=== PATIENT | female | born 2005 | race Caucasian/White ===

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

== ENCOUNTER 2023-03-18 03:28 | Inpatient (IN) ==
[2023-03-18] MEDS ORDERED: LACTATED RINGER'S 1,000 ML IV PRN (03:49)
[2023-03-18] MEDS ORDERED: LIDOCAINE 1% LOCAL 20 ML VIAL INFIL PRN (03:49)
[2023-03-18] MEDS ORDERED: fentaNYL citrate PF 100 MCG/2 ML VIAL ONE (04:16)
[2023-03-18] MEDS ORDERED: BUPIVACAINE 0.25% PF 30 ML VIAL ONE (04:16)
[2023-03-18] MEDS ORDERED: ePHEDrine sulfate 50 MG/ML AMP ONE (04:16)
[2023-03-18] MEDS ORDERED: LIDOCAINE 2%/EPINEPHRINE 1:200,000 20 ML PF ONE (04:16)
[2023-03-18] MEDS ORDERED: SODIUM CHLORIDE 0.9% PF INJ 10 ML VIAL ONE (04:16)
[2023-03-18] MEDS ORDERED: fentaNYL 2MCG/ML ROPIVACAINE 1.25MG/ML 100 ML BAG EPI ONE (04:17)
--- NOTE | 2023-03-18 04:21 | History & Physical Report ---
Date of Service March 18, 2023 Assessment & Plan (1) : Plan: epidural planned History of Present Illness Chief Complaint: labor Primary Care Provider: NO PCP 17 F P1001 at term presents in active labor. GBS is negative. Allergies Allergy/AdvReac Type Severity Reaction Status Date / Time No Known Allergies Allergy Unverified 05/14/22 18:56 Home Medications Medication Instructions Recorded Confirmed Type No Known Home Medications 05/14/22 05/14/22 History Patient History Medical History (Updated 03/18/23 @ 04:21 by Tim Blair MD) No significant active problems Social History Smoking Status: Current every day smoker Tobacco Type: E-cigarettes / Vaping Hx Alcohol Use: No Hx Substance Use: Yes Preferred Language: [place] Communication Ability: Effective Beliefs That Will Affect Care: None marital status: Single Current Living Situation: Significant Other Current Living Situation Comment: Lives in apartment with boyfriend and 2 pets Feels Safe at Home: Yes Assistive Devices: None 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 Review of Systems All systems reviewed & are unremarkable except as noted in HPI & below Physical Exam Constitutional: WD/WN, vitals as above Eyes: PERRL, conjunctivae normal, anicteric sclerae Respiratory: normal respiratory effort, lungs clear to auscultation Cardiovascular: RRR, no murmur, no edema Gastrointestinal (Abdomen): Inspection/Auscultation: abdomen normal to inspection Musculoskeletal: Extremities: extremities normal to inspection Skin: no rashes, warm and dry Neurologic: patellar DTR's 2+ bilat, sensation intact Psychiatric: A+Ox3, euthymic affect Genitourinary: OB Exam Abdomen: + fundal height and + vertex Manual OB Exam: + cervical dilation 8 cm and 9 cm, + cervical effacement 90% and 100% and + station 0 OB Exam Monitor Tracing: + external FHT monitor used, + external uterine monitor used, + category I and + normal FHT variability Results & Data Vital Signs (Past 12 Hours) Vital Signs Pulse BP 03/18/23 03:55 80 117/66 Monitoring External Monitor Cat 1
[2023-03-18 04:35] LABS: Hematocrit (blood only) 36.6 % (37.0-47.0); Hemoglobin 12.7 g/dl (12.0-16.0); Mean Corpuscular Hemoglobin 32.2 pg (25.0-34.0); Mean Corpuscular Hgb Conc 34.7 g/dL (32.0-36.0); Mean Corpuscular Volume 92.9 fL (80.0-100.0); Mean Platelet Volume 9.1 fL (9.4-12.4); Platelet Count 225 K/uL (130-400); RDW Coefficient of Variation 12.5 % (11.5-14.5); RDW Standard Deviation 42.5 fL (36.4-46.3); Red Blood Count 3.94 M/uL (4.20-5.40); White Blood Count 12.28 K/ul (4.8-10.8)
--- NOTE | 2023-03-18 04:40 | Anesthesiology Consultation ---
Date of Service March 18, 2023 Assessment & Plan Chart Review Chart Review: Acceptable Risk for Labor Epidural Consults Requested none History Height/Weight Height: 5 ft 5 in Weight: 71.214 kg Allergies Allergy/AdvReac Type Severity Reaction Status Date / Time No Known Allergies Allergy Verified 03/18/23 04:28 Medications Home Medications Medication Instructions Recorded Confirmed Last Taken ferrous sulfate 325 mg (65 mg 325 mg PO DAILY 03/18/23 03/18/23 03/17/23 iron) tablet (iron) vits no.124-ferrous fum 1 tab PO DAILY 03/18/23 03/18/23 03/16/23 27 mg iron-folic acid 800 mcg tablet ( Vitamin) Past Medical History Medical History No significant active problems Social History Smoking Status: Former smoker tobacco type: e-cigarettes Hx Alcohol Use: No Hx Substance Use: No substance use type: does not use Physical Exam Vital Signs Last Vital Signs Temp 36.8 C 03/18/23 04:06 Pulse 95 H 03/18/23 04:37 Resp 18 03/18/23 04:06 BP 136/84 03/18/23 04:30 Pulse Ox 82 L 03/18/23 04:37 Testing Laboratory Results 03/18/23 04:03
[2023-03-18] MEDS: OXYTOCIN 30 UNITS/500 ML BAG IV PRN ×2 (04:48→05:31)
[2023-03-18] MEDS ORDERED: BENZOCAINE 20% AER SPR 82.5 GM CAN EXT PRN (04:59)
[2023-03-18] MEDS ORDERED: OXYTOCIN 30 UNITS/500 ML BAG IV PRN (04:59)
[2023-03-18] MEDS ORDERED: ACETAMINOPHEN 325 MG TAB PO PRN (04:59)
[2023-03-18] MEDS ORDERED: HYDROCORTISONE ACETATE 25 MG SUPP PR PRN (04:59)
[2023-03-18] MEDS ORDERED: DIPHTHERIA/TETANUS/PERTUSSIS Vaccine (Tdap, Age 7+yrs) 0.5mL SYR/VL IM ONE (04:59)
--- NOTE | 2023-03-18 04:59 | Delivery Summary ---
Vaginal Delivery Summary Date of Service March 18, 2023 Vaginal Delivery Summary Delivery Note live female MORIAH with delayed cord clamping and Apgars 7/8 weight pending. Cord blood obtained followed by spontaneous delivery of intact placenta. No tears. EBL 250 ml. Final sponge and instrument count are correct. Mom and baby stable.
--- NOTE | 2023-03-18 05:11 | Anesthesia Procedure Note ---
Date of Service March 18, 2023 Anesthesia Post Epidural Note Vital Signs Vital Signs: Temp Pulse Resp BP Pulse Ox 36.8 C 91 H 18 108/54 L 80 L 03/18/23 04:06 03/18/23 05:00 03/18/23 04:06 03/18/23 05:00 03/18/23 04:42 Notes Mental Status: alert / awake / arousable Nausea / Vomiting: adequately controlled Pain: adequately controlled Airway Patency, RR, SpO2: stable & adequate BP & HR: stable & adequate Hydration State: stable & adequate Neuraxial Anesthesia: was administered and sensory block is resolving Anesthetic Complications: no major complications apparent and Pt Satisfied with anesthetic care Epidural: Removed without complications and With tip intact
[2023-03-18] MEDS: IBUPROFEN 600 MG TAB PO PRN ×2 (05:51→20:31)
[2023-03-18] MEDS: PRENATAL VITAMIN 1 TAB PO SCH (08:27)
[2023-03-18] MEDS: FERROUS SULFATE 325 MG TAB PO SCH (08:27)
[2023-03-18] MEDS: DOCUSATE SODIUM 100 MG CAP PO SCH ×2 (08:27→20:31)
[2023-03-18] MEDS ORDERED: NON-FORMULARY MEDICATION (Ferrous Sulfate [Iron] 325 mg (65 mg iron) Tablet) PO SCH (09:00)
[2023-03-18] MEDS ORDERED: PRENATAL VITAMIN 1 TAB PO SCH (09:00)
[2023-03-19 07:05] LABS: Hematocrit (blood only) 27.3 % (37.0-47.0); Hemoglobin 9.5 g/dl (12.0-16.0); Mean Corpuscular Hemoglobin 32.5 pg (25.0-34.0); Mean Corpuscular Hgb Conc 34.8 g/dL (32.0-36.0); Mean Corpuscular Volume 93.5 fL (80.0-100.0); Mean Platelet Volume 8.9 fL (9.4-12.4); Platelet Count 164 K/uL (130-400); RDW Coefficient of Variation 12.5 % (11.5-14.5); RDW Standard Deviation 43.1 fL (36.4-46.3); Red Blood Count 2.92 M/uL (4.20-5.40); White Blood Count 11.16 K/ul (4.8-10.8)
[2023-03-19] MEDS: DOCUSATE SODIUM 100 MG CAP PO SCH (08:27)
[2023-03-19] MEDS: FERROUS SULFATE 325 MG TAB PO SCH (08:27)
[2023-03-19] MEDS: PRENATAL VITAMIN 1 TAB PO SCH (08:27)
--- NOTE | 2023-03-19 10:22 | Obstetrical Progress Note ---
Date of Service March 19, 2023 Assessment & Plan (1) Normal course: Pt doing well no complaints d/c home with instructions Results & Data Vital Signs (Past 12 Hours) Vital Signs Temp Pulse Resp BP Pulse Ox O2 Del Method 03/19/23 07:45 37.0 C 52 L 16 95/58 L Room Air 03/18/23 23:30 36.8 C 76 18 104/66 99 Room Air 03/19/23 02:34 36.7 C 61 16 102/58 L Room Air
[2023-03-19] MEDS ORDERED: bisacodyL 5 MG TABEC PO SCH (20:00)
[2023-03-20] MEDS ORDERED: bisacodyL 10 MG SUPP PR PRN (04:59)
--- NOTE | 2023-03-21 11:52 | Coding Query ---
CODING QUERY To promote full compliance with coding requirements relating to patient care, provider participation is requested in all cases of master deputy sheriff court security uncertainty. Please assist us with the question(s) below: Coding Question(s): Please document weeks of gestation 38 weeks Physician's Response(s): Thank you Chenaugustus Urena Principal Diagnosis: "that condition established after study, to be chiefly responsible for occasioning the admission of the patient to the hospital for care." Co-Existing Principal Diagnosis: "when two or more diagnoses equally meet the criteria for principal diagnosis as determined by the circumstances of admission, diagnostic work up, and/or therapy provided, and the Alphabetic Index, Tabular List, or another coding guideline does not provide sequencing direction, any one of the diagnoses may be sequenced first." "When the physician has documented what appears to be a current diagnosis in the body of the record, but has not included the diagnosis in the final diagnostic statement, the physician should be asked whether the diagnosis should be added." (Source Coding [facility] 2 QTR90. p3-4) MAKEDA
== END 2023-03-19 13:45 | disposition home or self-care (01) | DRG 807 ==
LOC: OPB 03:28 → 4S1 03:30 → 4E2 08:35